=== PATIENT | female | born 1995 | race Caucasian/White ===

== ENCOUNTER 2019-01-03 18:53 | Inpatient (IN) | payer OTHER ==
[2019-01-03] MEDS ORDERED: Morphine Sulfate 4 mg/mL 1mL Syr IV STA (19:21)
[2019-01-03] MEDS ORDERED: Morphine Sulfate 4 mg/mL 1mL Syr ONE (19:22)
--- NOTE | 2019-01-03 19:28 | ED Physician Chart ---
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 History - Social History Smoking Status: Never smoker Hx Alcohol Use: No Hx Drug Use: No Review of Systems - Review of Systems Constitutional: Reports: See HPI EENTM: Reports: No symptoms reported Respiratory: Reports: No Symptoms Reported Cardiac (ROS): Reports: No Symptoms Reported ABD/GI: Reports: Abdominal pain : Reports: No Symptoms Reported Musculoskeletal: Reports: No Symptoms Reported Skin: Reports: No Symptoms Reported Neurological: Reports: No Symptoms Reported Endocrine: Reports: No Symptoms Reported Hematologic/Lymphatic: Reports: No Symptoms Reported All Other Systems: Reviewed and Negative Physical Exam - Physical Exam General Appearance: severe distress Eyes, Ears, Nose, Throat Exam: PERRL/EOMI Neck: FUL Respiratory: chest non-tender, no respiratory distress Cardiovascular/Chest: regular rate, rhythm Gastrointestinal/Abdominal: Guarding, Tenderness Extremity: normal range of motion 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
[2019-01-03 19:45] LABS: % BASOPHILS 0.9 % (0.0-2.0); % EOSINOPHILS 0.8 % (0.0-5.0); % LYMPHOCYTES 16.7 % (20.0-50.0); % MONOCYTES 7.3 % (2.0-10.0); % NEUTROPHILS 74.3 % (40.0-80.0); BASOPHILE ABSOLUTE 0.1 Th/cumm (0-0.2); EOSINOPHILE ABSOLUTE 0.1 Th/cmm (0.1-0.4); HEMATOCRIT 42.8 % (41.0-60); HEMOGLOBIN 14.6 gm/dL (12-16); LYMPHOCYTE ABSOLUTE 1.1 Th/cmm (1.5-3.0); MEAN CELL VOLUME 92.7 fl (81-100); MEAN CORPUSCULAR HEMOGLOBIN 31.6 pg (27.0-31.0); MONOCYTE ABSOLUTE 0.5 Th/cmm (0.3-1.0); NEUTROPHILE ABSOLUTE 4.6 Th/cmm (1.8-8.0); PLATELET COUNT 245 Th/cmm (150-400); RED BLOOD COUNT 4.61 Mil/cmm (3.80-5.10); WHITE BLOOD COUNT 6.4 Th/cmm (4.8-10.8)
[2019-01-03 19:55] LABS: URINE SOURCE CLEAN C
[2019-01-03 19:56] LABS: URINE BILIRUBIN SMALL (NEGATIVE); URINE BLOOD NEGATIVE (NEGATIVE); URINE GLUCOSE (UA) NEGATIVE (NEGATIVE); URINE KETONE 40 mg/dL (NEGATIVE); URINE LEUKOCYTE ESTERASE NEGATIVE (NEGATIVE); URINE NITRATE NEGATIVE (NEGATIVE); URINE PROTEIN NEGATIVE (NEGATIVE)
[2019-01-03 19:58] LABS: ALBUMIN 4.8 gm/dL (3.7-5.3); ALKALINE PHOSPHATASE 143 U/L (34-104); ANION GAP 14.2 (7.0-16.0); BILIRUBIN,TOTAL 2.7 mg/dL (0.3-1.0); BUN - UREA NITROGEN 5 mg/dL (7-25); CALCIUM SERUM 9.7 mg/dL (8.6-10.3); CARBON DIOXIDE 24.4 mEq/L (21.0-31.0); CHLORIDE 101 mEq/L (98-107); CREATININE - SERUM 0.7 mg/dL (0.6-1.2); GFR AFRICAN-AMERICAN > 60.0 ml/min (>90); GFR NON AFRICAN-AMERICAN > 60.0 ml/min; GLUCOSE 107 mg/dL (70-105); POTASSIUM SERUM 3.6 mEq/L (3.5-5.1); SGOT 233 U/L (13-39); SGPT/ALT 172 U/L (7-52); SODIUM SERUM 136 mEq/L (136-145); TOTAL PROTEIN,SERUM 7.2 gm/dL (6.0-8.3)
[2019-01-03 20:00] LABS: URINE CLARITY CLEAR (CLEAR); URINE COLOR YELLOW; URINE MICROSCOPIC INDICATED? YES
[2019-01-03 20:03] LABS: URINE BACTERIA FEW /hpf (NONE SEEN); URINE EPITHELIAL CELLS FEW /lpf (FEW); URINE WBC 0-2 /hpf (0-5)
[2019-01-03 22:10] LABS: AMYLASE SERUM 28 U/L (29-103); LIPASE 8 U/L (11-82)
[2019-01-03] MEDS ORDERED: Morphine Sulfate 2 mg/mL 1mL Syr IVP PRN (22:43)
[2019-01-03] MEDS: D5-0.45NS 1,000 ML IV SCH (23:50)
[2019-01-04 05:32] LABS: % EOSINOPHILS 1.1 % (0.0-5.0); % LYMPHOCYTES 37.3 % (20.0-50.0); % MONOCYTES 9.1 % (2.0-10.0); % NEUTROPHILS 52.5 % (40.0-80.0); EOSINOPHILE ABSOLUTE 0.1 Th/cmm (0.1-0.4); HEMATOCRIT 39.3 % (41.0-60); HEMOGLOBIN 13.3 gm/dL (12-16); LYMPHOCYTE ABSOLUTE 2.2 Th/cmm (1.5-3.0); MEAN CELL VOLUME 92.9 fl (81-100); MEAN CORPUSCULAR HEMOGLOBIN 31.6 pg (27.0-31.0); MONOCYTE ABSOLUTE 0.5 Th/cmm (0.3-1.0); NEUTROPHILE ABSOLUTE 3.2 Th/cmm (1.8-8.0); PLATELET COUNT 201 Th/cmm (150-400); RED BLOOD COUNT 4.22 Mil/cmm (3.80-5.10); RED CELL DISTRIBUTION WIDTH 12.1 % (11.5-20.0)
[2019-01-04 05:42] LABS: ALB/GLOB RATIO 1.8 (1.0-1.8); ALBUMIN 3.9 gm/dL (3.7-5.3); ALKALINE PHOSPHATASE 117 U/L (34-104); AMYLASE SERUM 22 U/L (29-103); ANION GAP 12.2 (7.0-16.0); BILIRUBIN,TOTAL 2.7 mg/dL (0.3-1.0); BUN - UREA NITROGEN 6 mg/dL (7-25); CARBON DIOXIDE 20.9 mEq/L (21.0-31.0); CHLORIDE 105 mEq/L (98-107); CREATININE - SERUM 0.6 mg/dL (0.6-1.2); GFR AFRICAN-AMERICAN > 60.0 ml/min (>90); GFR NON AFRICAN-AMERICAN > 60.0 ml/min; GLUCOSE 96 mg/dL (70-105); LIPASE 6 U/L (11-82); POTASSIUM SERUM 4.1 mEq/L (3.5-5.1); SGOT 174 U/L (13-39); SGPT/ALT 137 U/L (7-52); SODIUM SERUM 134 mEq/L (136-145); TOTAL PROTEIN,SERUM 6.1 gm/dL (6.0-8.3)
[2019-01-04 09:41] VITALS: BP 109/65
--- NOTE | 2019-01-04 16:43 | Diagnostic Imaging Report ---
CT abdomen and pelvis without intravenous contrast Indication: Abdominal pain Comparison: None, Technique: Axial images were obtained from the lung bases to the bilateral proximal femurs without IV contrast. Coronal reconstructions were made. total DLP: 419, CTDI8.6 FINDINGS: Hypoventilatory and atelectatic changes of the lung bases are noted. Assessment of solid organs is limited due to lack of IV contrast. No evidence of focal hepatic lesions. The patient is status post cholecystectomy. No focal splenic, or pancreatic lesions. The common bile duct is mildly prominent measuring up to 9 mm. No radiopaque common bile duct stones identified. Adrenal glands are poorly visualized. No hydronephrosis or nephrolithiasis. Small amount of free fluid is seen within the pelvis. Mildly prominent uterus is noted. Moderate stool is noted greatest within the right colon. No erosive acute appendicitis. No free air. Osseous structures demonstrate no acute abnormalities. IMPRESSION: Moderate stool greatest within the right colon. No evidence of acute appendicitis. Mild prominent uterus with small amount of free fluid in the pelvis. Please correlate clinically, consider follow-up with ultrasound Evidence of prior cholecystectomy. Mild prominent common bile duct is noted measuring up to 9 mm. This may be related to prior cholecystectomy procedure. Consider further assessment if indicated.
--- NOTE | 2019-01-04 16:43 | Diagnostic Imaging Report ---
Ultrasound abdomen HISTORY: Abdominal pain, elevated liver enzymes, previous cholecystectomy one year ago COMPARISON: None Technique: Sonography of the abdomen was performed in multiple planes. FINDINGS: The liver demonstrates normal echogenicity with no evidence of focal lesions. The liver measures 12.4 cm cm. No evidence of gallstones or gallbladder wall thickening. The common bile duct measures 2 mm. Evaluation of the pancreas is grossly unremarkable.. The right kidney measures 10.9 x 5.6 cm. No evidence of focal lesions or hydronephrosis. The left kidney measures 11.8 x 5.7 cm. No evidence of focal lesions or hydronephrosis. The spleen 9.4 cm. Images of the right lower quadrant were obtained. Appendix is not visualized. IMPRESSION: Nonvisualization of the gallbladder compatible with patient's surgical history. The common bile duct does not appear dilated on this examination. Note the common bile did appear dilated on recent CT exam. If clinically indicated MRCP may be obtained for further assessment.
--- NOTE | 2019-01-04 16:44 | History & Physical ---
ADMIT DATE: 01/04/2019 CHIEF COMPLAINT: Abdominal pain. HISTORY OF PRESENT ILLNESS: This is a 23-year-old female who was admitted from [facility] Emergency Room due to episode of abdominal pain for 3 days prior to hospitalization accompanied with nausea. REVIEW OF SYSTEMS: GENERAL: This is a 23-year-old female. No weakness. No fever. HEENT: No headache or dizziness. EYES: No eye pain, no blurring vision. NECK: No neck pain or nuchal rigidity. CHEST: No chest pain. No palpitation. PULMONARY: No coughing. No shortness of breath. GASTROINTESTINAL: Positive abdominal pain. Positive nausea. No vomiting. MUSCULOSKELETAL: No joint pain. No muscle pain. SOCIAL HISTORY: The patient lives at home with family. Denies any alcohol, nicotine or illicit drug use. PAST SURGICAL HISTORY: Includes a cholecystectomy. FAMILY HISTORY: Unremarkable. PAST MEDICAL HISTORY: Unremarkable. PHYSICAL EXAMINATION: VITAL SIGNS: Temperature 97.6, heart rate 68, blood pressure 107/59, respiration 18, 100% on room air. GENERAL: This is a 23-year-old female that appears as stated in no acute distress. HEENT: Head is atraumatic and normocephalic. Eyes: Bilateral conjunctivae are clear. Bilateral pupils equal, round, reactive. NECK: Supple. No JVD. CARDIOVASCULAR: S1 and S2, without murmur. PULMONARY: Clear to auscultation. GASTROINTESTINAL: Soft and nontender without guarding. Positive bowel sounds. No distention. MUSCULOSKELETAL: No clubbing. No cyanosis noted. ASSESSMENT: Acute abdominal pain. PLAN: We will admit the patient to Med/Surg, put the patient n.p.o. Followup. We will consult with GI doctor. CT scan was already done in the ER with no acute finding. Followup recommended with abdominal ultrasound, currently pending. If negative, we will proceed the patient with a clear liquid diet as tolerated. Treatment plans were discussed with the patient's nurse. Treatment plans were discussed with Dr. Swain. JOB# [id number]
[2019-01-04] MEDS: D5-0.45NS 1,000 ML IV SCH (20:04)
[2019-01-05 08:25] LABS: ALB/GLOB RATIO 2.1 (1.0-1.8); ALBUMIN 4.3 gm/dL (3.7-5.3); ALKALINE PHOSPHATASE 124 U/L (34-104); ANION GAP 11.5 (7.0-16.0); BILIRUBIN,TOTAL 1.5 mg/dL (0.3-1.0); BUN - UREA NITROGEN 6 mg/dL (7-25); CALCIUM SERUM 9.4 mg/dL (8.6-10.3); CARBON DIOXIDE 23.6 mEq/L (21.0-31.0); CHLORIDE 105 mEq/L (98-107); CREATININE - SERUM 0.6 mg/dL (0.6-1.2); GFR AFRICAN-AMERICAN > 60.0 ml/min (>90); GFR NON AFRICAN-AMERICAN > 60.0 ml/min; GLUCOSE 93 mg/dL (70-105); POTASSIUM SERUM 4.1 mEq/L (3.5-5.1); SGOT 94 U/L (13-39); SGPT/ALT 117 U/L (7-52); SODIUM SERUM 136 mEq/L (136-145); TOTAL PROTEIN,SERUM 6.4 gm/dL (6.0-8.3)
[2019-01-05] MEDS: D5-0.45NS 1,000 ML IV SCH (15:20)
--- NOTE | 2019-01-05 15:35 | Internal Medicine Prog Note ---
Internal Medicine Subjective - Subjective Service Date: 01/05/19 Patient seen and examined:: with staff, chart reviewed Patient is:: awake, verbal, interactive, in bed, talking Patient Complaints of:: other (waiting for MRI) Per staff patient has:: no adverse event, no episodes of fall Internal Medicine Objective - Results Result Diagrams: 01/04/19 05:15 01/05/19 07:58 Recent Labs: Laboratory Last Values WBC 6.0 Th/cmm (4.8-10.8) 01/04/19 05:15 RBC 4.22 Mil/cmm (3.80-5.10) 01/04/19 05:15 Hgb 13.3 gm/dL (12-16) 01/04/19 05:15 Hct 39.3 % (41.0-60) L 01/04/19 05:15 MCV 92.9 fl (81-100) 01/04/19 05:15 MCH 31.6 pg (27.0-31.0) H 01/04/19 05:15 MCHC Differential 34.0 pg (28.0-36.0) 01/04/19 05:15 RDW 12.1 % (11.5-20.0) 01/04/19 05:15 Plt Count 201 Th/cmm (150-400) 01/04/19 05:15 MPV 8.9 fl 01/04/19 05:15 Neutrophils % 52.5 % (40.0-80.0) 01/04/19 05:15 Lymphocytes % 37.3 % (20.0-50.0) 01/04/19 05:15 Monocytes % 9.1 % (2.0-10.0) 01/04/19 05:15 Eosinophils % 1.1 % (0.0-5.0) 01/04/19 05:15 Basophils % 0.0 % (0.0-2.0) 01/04/19 05:15 Sodium 136 mEq/L (136-145) 01/05/19 07:58 Potassium 4.1 mEq/L (3.5-5.1) 01/05/19 07:58 Chloride 105 mEq/L (98-107) 01/05/19 07:58 Carbon Dioxide 23.6 mEq/L (21.0-31.0) 01/05/19 07:58 Anion Gap 11.5 (7.0-16.0) 01/05/19 07:58 BUN 6 mg/dL (7-25) L 01/05/19 07:58 Creatinine 0.6 mg/dL (0.6-1.2) 01/05/19 07:58 Est GFR ( Amer) > 60.0 ml/min (>90) 01/05/19 07:58 Est GFR (Non-Af Amer) > 60.0 ml/min 01/05/19 07:58 BUN/Creatinine Ratio 10.0 01/05/19 07:58 Glucose 93 mg/dL (70-105) 01/05/19 07:58 POC Glucose 97 MG/DL (70 - 105) 01/04/19 09:22 Calcium 9.4 mg/dL (8.6-10.3) 01/05/19 07:58 Total Bilirubin 1.5 mg/dL (0.3-1.0) H 01/05/19 07:58 AST 94 U/L (13-39) H 01/05/19 07:58 ALT 117 U/L (7-52) H 01/05/19 07:58 Alkaline Phosphatase 124 U/L (34-104) H 01/05/19 07:58 Total Protein 6.4 gm/dL (6.0-8.3) 01/05/19 07:58 Albumin 4.3 gm/dL (3.7-5.3) 01/05/19 07:58 Globulin 2.1 gm/dL 01/05/19 07:58 Albumin/Globulin Ratio 2.1 (1.0-1.8) H 01/05/19 07:58 Amylase 22 U/L (29-103) L 01/04/19 05:15 Lipase 6 U/L (11-82) L 01/04/19 05:15 TSH 1.52 uIU/ml (0.34-5.60) 01/04/19 05:15 Urine Source CLEAN C 01/03/19 19:50 Urine Color YELLOW 01/03/19 19:50 Urine Clarity CLEAR (CLEAR) 01/03/19 19:50 Urine pH 8.0 (4.6 - 8.0) 01/03/19 19:50 Ur Specific [place] 1.015 (1.005-1.030) 01/03/19 19:50 Urine Protein NEGATIVE mg/dL (NEGATIVE) 01/03/19 19:50 Urine Glucose (UA) NEGATIVE mg/dL (NEGATIVE) 01/03/19 19:50 Urine Ketones 40 mg/dL (NEGATIVE) H 01/03/19 19:50 Urine Blood NEGATIVE (NEGATIVE) 01/03/19 19:50 Urine Nitrate NEGATIVE (NEGATIVE) 01/03/19 19:50 Urine Bilirubin SMALL (NEGATIVE) H 01/03/19 19:50 Urine Urobilinogen 2.0 E.U./dL (0.2 - 1.0) 01/03/19 19:50 Ur Leukocyte Esterase NEGATIVE (NEGATIVE) 01/03/19 19:50 Urine RBC 2-5 /hpf (0-5) 01/03/19 19:50 Urine WBC 0-2 /hpf (0-5) 01/03/19 19:50 Ur Epithelial Cells FEW /lpf (FEW) 01/03/19 19:50 Urine Bacteria FEW /hpf (NONE SEEN) 01/03/19 19:50 Urine Test NEGATIVE 01/03/19 19:50 - Physical Exam Vitals and I&O: Vital Signs Temp 96.8 F 01/05/19 15:27 Pulse 62 01/05/19 15:27 Resp 18 01/05/19 15:27 BP 108/57 01/05/19 15:27 Pulse Ox 99 01/05/19 15:27 Intake & Output 01/04/19 01/05/19 01/05/19 18:59 06:59 18:59 Intake Total 1480 Balance 1480 Weight (lbs) 139 lb 6.4 oz 139 lb Intake: Intake, IV Amount 1000 D5-0.45NS 1,000 ml @ 50 1000 mls/hr IV .Q20H [facility] Rx#: [id number] Oral 480 Other: # Voids 3 # Bowel Movements 0 Weight Source Bedscale Bedscale Active Medications: Current Medications Docusate Sodium (Colace) 200 mg PO BID JESICA Stop: 01/07/19 21:29 Last Admin: 01/05/19 08:49 Dose: 200 mg Dextrose/Sodium Chloride (D5-0.45ns) 1,000 mls @ 50 mls/hr IV .Q20H JESICA Stop: 03/04/19 22:36 Last Admin: 01/04/19 20:04 Dose: 50 mls/hr Morphine Sulfate (Morphine) 2 mg IVP Q4HR PRN PRN Reason: MOD-SEVERE PAIN Stop: 03/04/19 22:42 Ondansetron HCl (Zofran) 4 mg IV Q6H PRN PRN Reason: Nausea / Vomiting Stop: 03/05/19 21:16 General: alert, NAD HEENT: NC/AT, PERRLA Neck: Supple, No JVD Lungs: CTAB Cardiovascular: RRR, Normal S1, Normal S2 Abdomen: soft, non-tender, non-distended Extremities: clear Neurological: no change Internal Medicine Assmt/Plan - Assessment Assessment: Acute abdominal pain- improved Elevated LFTs - Plan Plan: Continue to monitor VS and labs F/u MRI Continue current treatments. Continue collaboration with consulting specialist, nursing team and interdisciplinary team. Fall Precaution.
[2019-01-06 04:54] LABS: ALB/GLOB RATIO 2.1 (1.0-1.8); ALBUMIN 4.1 gm/dL (3.7-5.3); BILIRUBIN,DIRECT 0.31 mg/dL (0.0-0.2); BILIRUBIN,TOTAL 1.1 mg/dL (0.3-1.0); TOTAL PROTEIN,SERUM 6.1 gm/dL (6.0-8.3)
--- NOTE | 2019-01-06 06:29 | Consultation ---
DATE OF CONSULTATION: 01/05/2019 INPATIENT GASTROINTESTINAL CONSULTATION REFERRING PHYSICIAN: Dr. Swain. REASON FOR CONSULTATION: Abdominal pain, elevated LFTs. HISTORY OF PRESENT ILLNESS: A 23-year-old female who has been having epigastric pain radiating around to her back for the past 3 days associated with nausea, but no vomiting. Denies hematemesis or coffee-ground emesis. Denies diarrhea, melena, or hematochezia. PAST MEDICAL HISTORY: Gallstones. PAST SURGICAL HISTORY: Include cholecystectomy. FAMILY HISTORY: Significant for gallstone disease. SOCIAL HISTORY: Denies tobacco, alcohol, or IV drug usage. ALLERGIES: None. CURRENT MEDICATIONS: Colace, morphine, Zofran, IV fluids. REVIEW OF SYSTEMS: Ten-point review of system was performed and the pertinent positive was the abdominal pain, nausea. All other systems were, otherwise, negative. PHYSICAL EXAMINATION: VITAL SIGNS: Temperature 98.4, breathing 18, pulse of 63, blood pressure 124/62, satting 99%. GENERAL: In no apparent distress. EYES: Anicteric. Normal conjunctivae. HEENT: Normocephalic, atraumatic. Moist mucous membranes. NECK: Soft, supple. CHEST: Clear. No effort. CARDIOVASCULAR: Regular rate and rhythm. ABDOMEN: Soft, nondistended, tender upper abdomen. No rebound. No guarding. SKIN: Warm, dry. EXTREMITIES: Reveal no cyanosis. PSYCHOLOGIC: Alert and oriented x 3. LABORATORY DATA: Show white count 6, hemoglobin 13.3, platelets of 201,000. Total bilirubin 2.7, AST 174, ALT 137, alkaline phosphatase 117, lipase 6. CT abdomen and pelvis showed a dilated common bile duct. IMPRESSION: A 23-year-old female with upper abdominal pain associated with elevated LFTs. She has had her gallbladder taken out in the past. The rise in elevated LFTs could be indicative of a retained common bile duct stone or over the passage of a stone combined that with the slightly dilation of the common bile duct would be supportive of this. Other possibilities could include gastritis, peptic ulcer disease, etc. PLAN: 1. Get MRCP. 2. If MRCP is positive, then we will need ERCP. If MRCP is negative, then consider EGD. 3. Follow LFTs. 4. Continue supportive care. Thank you for allowing me to participate. Please call me if any questions. [facility]# [id number]
--- NOTE | 2019-01-06 10:05 | GI Progress Note ---
Subjective - Review of Systems Service Date: 01/06/19 Subjective: No further abd pain GI OBJECTIVE - Results Result Diagrams: 01/04/19 05:15 01/05/19 07:58 Recent Labs: Laboratory Last Values WBC 6.0 Th/cmm (4.8-10.8) 01/04/19 05:15 RBC 4.22 Mil/cmm (3.80-5.10) 01/04/19 05:15 Hgb 13.3 gm/dL (12-16) 01/04/19 05:15 Hct 39.3 % (41.0-60) L 01/04/19 05:15 MCV 92.9 fl (81-100) 01/04/19 05:15 MCH 31.6 pg (27.0-31.0) H 01/04/19 05:15 MCHC Differential 34.0 pg (28.0-36.0) 01/04/19 05:15 RDW 12.1 % (11.5-20.0) 01/04/19 05:15 Plt Count 201 Th/cmm (150-400) 01/04/19 05:15 MPV 8.9 fl 01/04/19 05:15 Neutrophils % 52.5 % (40.0-80.0) 01/04/19 05:15 Lymphocytes % 37.3 % (20.0-50.0) 01/04/19 05:15 Monocytes % 9.1 % (2.0-10.0) 01/04/19 05:15 Eosinophils % 1.1 % (0.0-5.0) 01/04/19 05:15 Basophils % 0.0 % (0.0-2.0) 01/04/19 05:15 Sodium 136 mEq/L (136-145) 01/05/19 07:58 Potassium 4.1 mEq/L (3.5-5.1) 01/05/19 07:58 Chloride 105 mEq/L (98-107) 01/05/19 07:58 Carbon Dioxide 23.6 mEq/L (21.0-31.0) 01/05/19 07:58 Anion Gap 11.5 (7.0-16.0) 01/05/19 07:58 BUN 6 mg/dL (7-25) L 01/05/19 07:58 Creatinine 0.6 mg/dL (0.6-1.2) 01/05/19 07:58 Est GFR ( Amer) > 60.0 ml/min (>90) 01/05/19 07:58 Est GFR (Non-Af Amer) > 60.0 ml/min 01/05/19 07:58 BUN/Creatinine Ratio 10.0 01/05/19 07:58 Glucose 93 mg/dL (70-105) 01/05/19 07:58 POC Glucose 97 MG/DL (70 - 105) 01/04/19 09:22 Calcium 9.4 mg/dL (8.6-10.3) 01/05/19 07:58 Total Bilirubin 1.1 mg/dL (0.3-1.0) H 01/06/19 04:25 Direct Bilirubin 0.31 mg/dL (0.0-0.2) H 01/06/19 04:25 AST 61 U/L (13-39) H 01/06/19 04:25 ALT 89 U/L (7-52) H 01/06/19 04:25 Alkaline Phosphatase 107 U/L (34-104) H 01/06/19 04:25 Total Protein 6.1 gm/dL (6.0-8.3) 01/06/19 04:25 Albumin 4.1 gm/dL (3.7-5.3) 01/06/19 04:25 Globulin 2.0 gm/dL 01/06/19 04:25 Albumin/Globulin Ratio 2.1 (1.0-1.8) H 01/06/19 04:25 Amylase 22 U/L (29-103) L 01/04/19 05:15 Lipase 6 U/L (11-82) L 01/04/19 05:15 TSH 1.52 uIU/ml (0.34-5.60) 01/04/19 05:15 Urine Source CLEAN C 01/03/19 19:50 Urine Color YELLOW 01/03/19 19:50 Urine Clarity CLEAR (CLEAR) 01/03/19 19:50 Urine pH 8.0 (4.6 - 8.0) 01/03/19 19:50 Ur Specific [place] 1.015 (1.005-1.030) 01/03/19 19:50 Urine Protein NEGATIVE mg/dL (NEGATIVE) 01/03/19 19:50 Urine Glucose (UA) NEGATIVE mg/dL (NEGATIVE) 01/03/19 19:50 Urine Ketones 40 mg/dL (NEGATIVE) H 01/03/19 19:50 Urine Blood NEGATIVE (NEGATIVE) 01/03/19 19:50 Urine Nitrate NEGATIVE (NEGATIVE) 01/03/19 19:50 Urine Bilirubin SMALL (NEGATIVE) H 01/03/19 19:50 Urine Urobilinogen 2.0 E.U./dL (0.2 - 1.0) 01/03/19 19:50 Ur Leukocyte Esterase NEGATIVE (NEGATIVE) 01/03/19 19:50 Urine RBC 2-5 /hpf (0-5) 01/03/19 19:50 Urine WBC 0-2 /hpf (0-5) 01/03/19 19:50 Ur Epithelial Cells FEW /lpf (FEW) 01/03/19 19:50 Urine Bacteria FEW /hpf (NONE SEEN) 01/03/19 19:50 Urine Test NEGATIVE 01/03/19 19:50 - Physical Exam Vitals and I&O: Vital Signs Temp 98.1 F 01/06/19 08:00 Pulse 63 01/06/19 08:00 Resp 18 01/06/19 08:00 BP 118/56 01/06/19 08:00 Pulse Ox 97 01/06/19 08:00 Intake & Output 01/05/19 01/06/19 01/06/19 18:59 06:59 18:59 Intake Total 1463.333 240 Balance 1463.333 240 Weight (lbs) 63.049 kg 63.049 kg Intake: Intake, IV Amount 963.333 D5-0.45NS 1,000 ml @ 50 963.333 mls/hr IV .Q20H [facility] Rx#: [id number] Oral 500 240 Other: # Voids 4 2 # Bowel Movements 1 Stool Characteristics Liquid Liquid Brown Brown Weight Source Bedscale Bedscale Active Medications: Current Medications Docusate Sodium (Colace) 200 mg PO BID JESICA Stop: 01/07/19 21:29 Last Admin: 01/06/19 08:54 Dose: Not Given Dextrose/Sodium Chloride (D5-0.45ns) 1,000 mls @ 50 mls/hr IV .Q20H JESICA Stop: 03/04/19 22:36 Last Admin: 01/05/19 15:20 Dose: 50 mls/hr Morphine Sulfate (Morphine) 2 mg IVP Q4HR PRN PRN Reason: MOD-SEVERE PAIN Stop: 03/04/19 22:42 Ondansetron HCl (Zofran) 4 mg IV Q6H PRN PRN Reason: Nausea / Vomiting Stop: 03/05/19 21:16 General: Alert, Oriented x3 Abdomen: Soft, no Tender, no Hepatomegaly, no Splenomegaly, no Distended, no Rebound Psych/Mental Status: Mental status NL Assessment/Plan - Problem List Patient Problems: All Active Problems SEVERE UPPER QUADRANT PAIN (Acute) - Assessment Assessment: # Elevated LFTs # Hx cholecystectomy CT showed possible CBD dilation although US did not. MRCP today to eval definitively for CBD stone. If positive, will need ERCP Plan: - f/u MRCP. If CBD stone, then schedule for ERCp - clears are ok
--- NOTE | 2019-01-06 13:46 | Diagnostic Imaging Report ---
MRCP History: Elevated liver function tests, history of cholecystectomy Comparison: CT abdomen pelvis performed on 01/03/2019 Technique: Multiplanar T1 and T2 including heavily weighted MRCP images were obtained without IV contrast. Findings: Exam is limited due to motion. There is no evidence of focal hepatic lesions. The patient is status post cholecystectomy. No evidence of common bile duct dilatation. The common bile measures up to 4 mm. There is close proximity of the second portion of the duodenum to the common bile duct. No common bile duct stones. Limited evaluation of the pancreas demonstrates no obvious focal lesions. No evidence of pancreatic ductal dilatation. Borderline prominent spleen is noted. No evidence of hydronephrosis. IMPRESSION: Evidence of previous cholecystectomy. The common bile duct measures up to 4 mm. No common bile duct stones identified. No evidence of intrahepatic biliary dilatation. No gross free fluid identified. Borderline prominent spleen.
--- NOTE | 2019-01-06 13:48 | Internal Medicine Prog Note ---
Internal Medicine Subjective - Subjective Service Date: 01/06/[address] (C[address] DR MENDOZA) Patient seen and examined:: with staff Patient is:: awake, verbal, interactive, in bed, talking Per staff patient has:: no adverse event, no episodes of fall Internal Medicine Objective - Results Result Diagrams: 01/04/19 05:15 01/05/19 07:58 Recent Labs: Laboratory Last Values WBC 6.0 Th/cmm (4.8-10.8) 01/04/19 05:15 RBC 4.22 Mil/cmm (3.80-5.10) 01/04/19 05:15 Hgb 13.3 gm/dL (12-16) 01/04/19 05:15 Hct 39.3 % (41.0-60) L 01/04/19 05:15 MCV 92.9 fl (81-100) 01/04/19 05:15 MCH 31.6 pg (27.0-31.0) H 01/04/19 05:15 MCHC Differential 34.0 pg (28.0-36.0) 01/04/19 05:15 RDW 12.1 % (11.5-20.0) 01/04/19 05:15 Plt Count 201 Th/cmm (150-400) 01/04/19 05:15 MPV 8.9 fl 01/04/19 05:15 Neutrophils % 52.5 % (40.0-80.0) 01/04/19 05:15 Lymphocytes % 37.3 % (20.0-50.0) 01/04/19 05:15 Monocytes % 9.1 % (2.0-10.0) 01/04/19 05:15 Eosinophils % 1.1 % (0.0-5.0) 01/04/19 05:15 Basophils % 0.0 % (0.0-2.0) 01/04/19 05:15 Sodium 136 mEq/L (136-145) 01/05/19 07:58 Potassium 4.1 mEq/L (3.5-5.1) 01/05/19 07:58 Chloride 105 mEq/L (98-107) 01/05/19 07:58 Carbon Dioxide 23.6 mEq/L (21.0-31.0) 01/05/19 07:58 Anion Gap 11.5 (7.0-16.0) 01/05/19 07:58 BUN 6 mg/dL (7-25) L 01/05/19 07:58 Creatinine 0.6 mg/dL (0.6-1.2) 01/05/19 07:58 Est GFR ( Amer) > 60.0 ml/min (>90) 01/05/19 07:58 Est GFR (Non-Af Amer) > 60.0 ml/min 01/05/19 07:58 BUN/Creatinine Ratio 10.0 01/05/19 07:58 Glucose 93 mg/dL (70-105) 01/05/19 07:58 POC Glucose 97 MG/DL (70 - 105) 01/04/19 09:22 Calcium 9.4 mg/dL (8.6-10.3) 01/05/19 07:58 Total Bilirubin 1.1 mg/dL (0.3-1.0) H 01/06/19 04:25 Direct Bilirubin 0.31 mg/dL (0.0-0.2) H 01/06/19 04:25 AST 61 U/L (13-39) H 01/06/19 04:25 ALT 89 U/L (7-52) H 01/06/19 04:25 Alkaline Phosphatase 107 U/L (34-104) H 01/06/19 04:25 Total Protein 6.1 gm/dL (6.0-8.3) 01/06/19 04:25 Albumin 4.1 gm/dL (3.7-5.3) 01/06/19 04:25 Globulin 2.0 gm/dL 01/06/19 04:25 Albumin/Globulin Ratio 2.1 (1.0-1.8) H 01/06/19 04:25 Amylase 22 U/L (29-103) L 01/04/19 05:15 Lipase 6 U/L (11-82) L 01/04/19 05:15 TSH 1.52 uIU/ml (0.34-5.60) 01/04/19 05:15 Urine Source CLEAN C 01/03/19 19:50 Urine Color YELLOW 01/03/19 19:50 Urine Clarity CLEAR (CLEAR) 01/03/19 19:50 Urine pH 8.0 (4.6 - 8.0) 01/03/19 19:50 Ur Specific [place] 1.015 (1.005-1.030) 01/03/19 19:50 Urine Protein NEGATIVE mg/dL (NEGATIVE) 01/03/19 19:50 Urine Glucose (UA) NEGATIVE mg/dL (NEGATIVE) 01/03/19 19:50 Urine Ketones 40 mg/dL (NEGATIVE) H 01/03/19 19:50 Urine Blood NEGATIVE (NEGATIVE) 01/03/19 19:50 Urine Nitrate NEGATIVE (NEGATIVE) 01/03/19 19:50 Urine Bilirubin SMALL (NEGATIVE) H 01/03/19 19:50 Urine Urobilinogen 2.0 E.U./dL (0.2 - 1.0) 01/03/19 19:50 Ur Leukocyte Esterase NEGATIVE (NEGATIVE) 01/03/19 19:50 Urine RBC 2-5 /hpf (0-5) 01/03/19 19:50 Urine WBC 0-2 /hpf (0-5) 01/03/19 19:50 Ur Epithelial Cells FEW /lpf (FEW) 01/03/19 19:50 Urine Bacteria FEW /hpf (NONE SEEN) 01/03/19 19:50 Urine Test NEGATIVE 01/03/19 19:50 - Physical Exam Vitals and I&O: Vital Signs Temp 98.4 F 01/06/19 11:38 Pulse 65 01/06/19 11:38 Resp 18 01/06/19 11:38 BP 114/67 01/06/19 11:38 Pulse Ox 97 01/06/19 11:38 Intake & Output 01/05/19 01/06/19 01/06/19 18:59 06:59 18:59 Intake Total 1463.333 240 Balance 1463.333 240 Weight (lbs) 63.049 kg 63.049 kg Intake: Intake, IV Amount 963.333 D5-0.45NS 1,000 ml @ 50 963.333 mls/hr IV .Q20H [facility] Rx#: [id number] Oral 500 240 Other: # Voids 4 2 # Bowel Movements 1 Stool Characteristics Liquid Liquid Brown Brown Weight Source Bedscale Bedscale Active Medications: Current Medications Docusate Sodium (Colace) 200 mg PO BID JESICA Stop: 01/07/19 21:29 Last Admin: 01/06/19 08:54 Dose: Not Given Dextrose/Sodium Chloride (D5-0.45ns) 1,000 mls @ 50 mls/hr IV .Q20H [facility] Stop: 03/04/19 22:36 Last Admin: 01/05/19 15:20 Dose: 50 mls/hr Morphine Sulfate (Morphine) 2 mg IVP Q4HR PRN PRN Reason: MOD-SEVERE PAIN Stop: 03/04/19 22:42 Ondansetron HCl (Zofran) 4 mg IV Q6H PRN PRN Reason: Nausea / Vomiting Stop: 03/05/19 21:16 General: alert, NAD HEENT: NC/AT, PERRLA Neck: Supple, No JVD Lungs: CTAB Cardiovascular: RRR, Normal S1, Normal S2 Abdomen: soft, non-tender, non-distended Extremities: clear Neurological: no change Internal Medicine Assmt/Plan - Assessment Assessment: 1/ Acute abdominal pain. 2. h/o cholecystectomy. - Plan Plan: as per wound care center consultant. Follow up with GI as out patient.
[2019-01-06] MEDS: D5-0.45NS 1,000 ML IV SCH (18:43)
--- NOTE | 2019-01-07 09:21 | GI Progress Note ---
Subjective - Review of Systems Service Date: 01/07/19 Subjective: No overnight events GI OBJECTIVE - Results Result Diagrams: 01/04/19 05:15 01/05/19 07:58 Recent Labs: Laboratory Last Values WBC 6.0 Th/cmm (4.8-10.8) 01/04/19 05:15 RBC 4.22 Mil/cmm (3.80-5.10) 01/04/19 05:15 Hgb 13.3 gm/dL (12-16) 01/04/19 05:15 Hct 39.3 % (41.0-60) L 01/04/19 05:15 MCV 92.9 fl (81-100) 01/04/19 05:15 MCH 31.6 pg (27.0-31.0) H 01/04/19 05:15 MCHC Differential 34.0 pg (28.0-36.0) 01/04/19 05:15 RDW 12.1 % (11.5-20.0) 01/04/19 05:15 Plt Count 201 Th/cmm (150-400) 01/04/19 05:15 MPV 8.9 fl 01/04/19 05:15 Neutrophils % 52.5 % (40.0-80.0) 01/04/19 05:15 Lymphocytes % 37.3 % (20.0-50.0) 01/04/19 05:15 Monocytes % 9.1 % (2.0-10.0) 01/04/19 05:15 Eosinophils % 1.1 % (0.0-5.0) 01/04/19 05:15 Basophils % 0.0 % (0.0-2.0) 01/04/19 05:15 Sodium 136 mEq/L (136-145) 01/05/19 07:58 Potassium 4.1 mEq/L (3.5-5.1) 01/05/19 07:58 Chloride 105 mEq/L (98-107) 01/05/19 07:58 Carbon Dioxide 23.6 mEq/L (21.0-31.0) 01/05/19 07:58 Anion Gap 11.5 (7.0-16.0) 01/05/19 07:58 BUN 6 mg/dL (7-25) L 01/05/19 07:58 Creatinine 0.6 mg/dL (0.6-1.2) 01/05/19 07:58 Est GFR ( Amer) > 60.0 ml/min (>90) 01/05/19 07:58 Est GFR (Non-Af Amer) > 60.0 ml/min 01/05/19 07:58 BUN/Creatinine Ratio 10.0 01/05/19 07:58 Glucose 93 mg/dL (70-105) 01/05/19 07:58 POC Glucose 97 MG/DL (70 - 105) 01/04/19 09:22 Calcium 9.4 mg/dL (8.6-10.3) 01/05/19 07:58 Total Bilirubin 1.1 mg/dL (0.3-1.0) H 01/06/19 04:25 Direct Bilirubin 0.31 mg/dL (0.0-0.2) H 01/06/19 04:25 AST 61 U/L (13-39) H 01/06/19 04:25 ALT 89 U/L (7-52) H 01/06/19 04:25 Alkaline Phosphatase 107 U/L (34-104) H 01/06/19 04:25 Total Protein 6.1 gm/dL (6.0-8.3) 01/06/19 04:25 Albumin 4.1 gm/dL (3.7-5.3) 01/06/19 04:25 Globulin 2.0 gm/dL 01/06/19 04:25 Albumin/Globulin Ratio 2.1 (1.0-1.8) H 01/06/19 04:25 Amylase 22 U/L (29-103) L 01/04/19 05:15 Lipase 6 U/L (11-82) L 01/04/19 05:15 TSH 1.52 uIU/ml (0.34-5.60) 01/04/19 05:15 Urine Source CLEAN C 01/03/19 19:50 Urine Color YELLOW 01/03/19 19:50 Urine Clarity CLEAR (CLEAR) 01/03/19 19:50 Urine pH 8.0 (4.6 - 8.0) 01/03/19 19:50 Ur Specific Cunningham 1.015 (1.005-1.030) 01/03/19 19:50 Urine Protein NEGATIVE mg/dL (NEGATIVE) 01/03/19 19:50 Urine Glucose (UA) NEGATIVE mg/dL (NEGATIVE) 01/03/19 19:50 Urine Ketones 40 mg/dL (NEGATIVE) H 01/03/19 19:50 Urine Blood NEGATIVE (NEGATIVE) 01/03/19 19:50 Urine Nitrate NEGATIVE (NEGATIVE) 01/03/19 19:50 Urine Bilirubin SMALL (NEGATIVE) H 01/03/19 19:50 Urine Urobilinogen 2.0 E.U./dL (0.2 - 1.0) 01/03/19 19:50 Ur Leukocyte Esterase NEGATIVE (NEGATIVE) 01/03/19 19:50 Urine RBC 2-5 /hpf (0-5) 01/03/19 19:50 Urine WBC 0-2 /hpf (0-5) 01/03/19 19:50 Ur Epithelial Cells FEW /lpf (FEW) 01/03/19 19:50 Urine Bacteria FEW /hpf (NONE SEEN) 01/03/19 19:50 Urine Test NEGATIVE 01/03/19 19:50 - Physical Exam Vitals and I&O: Vital Signs Temp 97.4 F 01/07/19 09:02 Pulse 75 01/07/19 09:02 Resp 19 01/07/19 09:02 BP 98/49 01/07/19 09:02 Pulse Ox 99 01/07/19 09:02 Intake & Output 01/06/19 01/07/19 01/07/19 18:59 06:59 18:59 Intake Total 1000 520 Balance 1000 520 Weight (lbs) 62.596 kg Intake: Intake, IV Amount 1000 D5-0.45NS 1,000 ml @ 50 1000 mls/hr IV .Q20H [facility] Rx#: [id number] Oral 520 Other: # Voids 3 Stool Characteristics Liquid Liquid Brown Weight Source Bedscale Active Medications: Current Medications Docusate Sodium (Colace) 200 mg PO BID JESICA Stop: 01/07/19 21:29 Last Admin: 01/07/19 08:06 Dose: 200 mg Dextrose/Sodium Chloride (D5-0.45ns) 1,000 mls @ 50 mls/hr IV .Q20H [place] Stop: 03/04/19 22:36 Last Admin: 01/06/19 18:43 Dose: 50 mls/hr Morphine Sulfate (Morphine) 2 mg IVP Q4HR PRN PRN Reason: MOD-SEVERE PAIN Stop: 03/04/19 22:42 Ondansetron HCl (Zofran) 4 mg IV Q6H PRN PRN Reason: Nausea / Vomiting Stop: 03/05/19 21:16 General: Alert, Oriented x3 HEENT: Atraumatic Neck: Supple Cardiovascular: Regular rate Abdomen: Bowel sounds, Soft, no Tender, no Hepatomegaly, no Splenomegaly, no Distended Assessment/Plan - Problem List Patient Problems: All Active Problems SEVERE UPPER QUADRANT PAIN (Acute) - Assessment Assessment: # Elevated LFTs # Hx cholecystectomy CT showed possible CBD dilation although US did not. MRCP was negative for CBD stone, shows normal biliary system. She likely passed a stone. Plan: - diet as tolerated - ok by GI for dc GI to see as needed, please call with any question
== END 2019-01-07 14:08 | disposition home or self-care (01) | DRG 392 ==
LOC: ER 18:53 → MSI 01-04 05:45
PROVIDERS: ADMIT Internal Medicine; ATTEND Internal Medicine
DX: R10.10 Upper abdominal pain, unspecified (principal); K75.9 Inflammatory liver disease, unspecified; Z90.49 Acquired absence of other specified parts of digestive tract
CPT/HCPCS: 36415-UA; 76700-TC; 80053-TC; 80076-TC; 81001-TC; 81025-TC; 82150-TC; 82948-90; 83690-TC; 84443-TC; 85025-TC; 87380-90; 96374; 96375; 96376; J1885; Z7610; Z7610-TC